=== PATIENT | female | born 1980 | race Caucasian/White ===

== ENCOUNTER 2018-08-25 13:49 | Outpatient (CLI) | payer OTHER, SELFPAY ==
--- NOTE | 2018-08-25 13:54 | PC.NURSE ---
[facility] [employer]
== END 2018-08-25 13:57 | disposition home or self-care (01) ==
LOC: UTC.OUT 13:50
PROVIDERS: PCP Family Medicine Geriatric Medicine; Visit Provider Nurse Practitioner
DX: Z00.00 Encounter for general adult medical examination without abnormal findings (principal)

== ENCOUNTER → 2020-04-15 21:31 | Outpatient (CLI) | payer OTHER, SELFPAY ==
[2020-04-17 15:55] LABS: Covid-19 Nasal PCR Sendout Lex POSITIVE
== END ==
PROVIDERS: PCP Emergency Medicine; Visit Provider Emergency Medicine
DX: Z20.828 Contact with and (suspected) exposure to other viral communicable diseases (principal); U07.1 COVID-19; R51 Headache; R05 Cough
CPT/HCPCS: U0004

== ENCOUNTER → 2020-04-16 02:18 | Outpatient (CLI) | payer OTHER, SELFPAY ==
[2020-04-16 03:29] LABS: Coronavirus 19 IgG Antibody Negative (Negative); Coronavirus 19 IgM Antibody Negative (Negative)
== END ==
PROVIDERS: PCP Emergency Medicine; Visit Provider Emergency Medicine
DX: Z20.828 Contact with and (suspected) exposure to other viral communicable diseases (principal)
CPT/HCPCS: 86328

== ENCOUNTER 2021-03-06 04:42 | Outpatient (CLI) | payer OTHER, SELFPAY ==
[2021-03-06 05:20] VITALS: BMI 36.0
== END 2021-03-06 05:23 | disposition home or self-care (01) ==
LOC: OUTP 04:45
PROVIDERS: PCP Emergency Medicine; Visit Provider Emergency Medicine
DX: J06.9 Acute upper respiratory infection, unspecified (principal)

== ENCOUNTER → 2023-01-26 12:04 | Outpatient (CLI) | payer OTHER, SELFPAY ==
[2023-01-26 10:23] LABS: Basophils # 0.1 K/mm3 (0-0.2); Basophils % 0.5 % (0.1-2.0); Eosinophils # 0.4 K/mm3 (0.0-0.4); Eosinophils % 3.5 % (0.1-12.0); Hematocrit 36.3 % (37.0-47.0); Hemoglobin 11.4 g/dL (12.2-16.2); Lymphocytes # 3.3 K/mm3 (0.7-4.5); Lymphocytes % 29.6 % (10-50); Mean Corpuscular HGB Conc 31.4 g/dL (31.8-35.4); Mean Corpuscular Hemoglobin 25.5 pg (27.0-31.2); Mean Corpuscular Volume 81.2 fl (81-99); Mean Platelet Volume 6.6 fl (7.4-10.4); Monocytes # 0.9 K/mm3 (0.1-1.0); Monocytes % 7.9 % (1.7-9.3); Neutrophils # 6.5 K/mm3 (1.8-7.8); Neutrophils % 58.5 % (37.0-80.0); Platelet Count 378 K/mm3 (142-424); Red Blood Count 4.47 M/mm3 (4.20-5.40); Red Cell Distribution Width 16.3 % (11.5-17.5); White Blood Count 11.2 K/mm3 (4.8-10.8)
[2023-01-26 10:45] LABS: Alanine Aminotransferase 27 U/L (12-78); Albumin Level 4.2 g/dl (3.5-5.0); Albumin/Globulin Ratio 1.4 (1.1-1.8); Alkaline Phosphatase 57 U/L (38-126); Anion Gap 16.8 mEq/L (5-15); Aspartate Amino Transferase 28 U/L (14-36); Bilirubin,Total 0.3 mg/dl (0.2-1.3); Blood Urea Nitrogen 13 mg/dl (7-17); Calcium 9.2 mg/dl (8.4-10.2); Carbon Dioxide 24 mmol/L (22.0-30.0); Chloride 102 mmol/L (98-107); Chol/HDL Ratio 4.9 (1-3.5); Cholesterol 274 mg/dl (140-200); Estimated Glomerular Filt Rate 109 ml/min (>60); GFR (African American) 132 ML/MIN (>60); Glucose 97 mg/dl (74-100); HDL Cholesterol 56 mg/dl (40-60); Potassium 4.8 mmoL/L (3.5-5.1); Sodium 138 mmol/L (136-145); Total Protein,Serum 7.2 g/dl (6.3-8.2); Triglycerides 309 mg/dl (30-150); VLDL Cholesterol 62 mg/dL (0-40)
[2023-01-26 10:55] LABS: Hemoglobin A1C 5.6 % (4.0-6.0)
[2023-01-26 11:15] LABS: Thyroid Stimulating Hormone 3.71 uIU/mL (0.465-4.68)
== END ==
PROVIDERS: PCP Nurse Practitioner Family; Visit Provider Nurse Practitioner Family
DX: I10 Essential (primary) hypertension (principal); Z00.00 Encounter for general adult medical examination without abnormal findings; Z13.1 Encounter for screening for diabetes mellitus; Z13.220 Encounter for screening for lipoid disorders; E66.9 Obesity, unspecified; Z68.41 Body mass index [BMI] 40.0-44.9, adult; Z79.899 Other long term (current) drug therapy
CPT/HCPCS: 36415; 80053; 80061; 83036; 84443; 85025

== ENCOUNTER → 2023-02-09 06:33 | Outpatient (CLI) | payer OTHER, SELFPAY ==
--- NOTE | 2023-02-09 07:32 | MM_ITS ---
PROCEDURE INFORMATION: Exam: Bilateral Screening 3D Mammography Exam date and time: 02/09/2023 7:26 AM Age: 42 years old Clinical indication: Screening mammogram TECHNIQUE: Imaging protocol: Bilateral Screening tomosynthesis and 2D mammography including computer-aided detection (CAD) when performed. COMPARISON: No relevant prior studies available. FINDINGS: MAMMOGRAPHY: Breast composition: There are scattered areas of fibroglandular density. Mass: 1.8 cm mass within the upper outer anterior right breast should be further assessed with ultrasound. 0.6 cm mass within the slightly lower inner right middle 1/3 about 7 cm from the nipple should be further assessed with ultrasound. Architectural distortion: No new or suspicious architectural distortion. Calcifications: No new or suspicious calcifications are present Asymmetric density: No new or suspicious asymmetric density is present Skin thickening: None. Axillary adenopathy: None. IMPRESSION: 1. 1.8 cm mass within the upper outer anterior right breast should be further assessed with ultrasound. 2. 0.6 cm mass within the slightly lower inner right middle 1/3 about 7 cm from the nipple should be further assessed with ultrasound. ASSESSMENT: BI-RADS category 0: Incomplete-need additional imaging evaluation and/or prior mammograms for comparison.
== END ==
PROVIDERS: PCP Nurse Practitioner Family; Visit Provider Nurse Practitioner Family
DX: Z12.31 Encounter for screening mammogram for malignant neoplasm of breast (principal)
CPT/HCPCS: 77063; 77067

== ENCOUNTER → 2023-02-12 13:48 | Outpatient (CLI) | payer OTHER, SELFPAY ==
--- NOTE | 2023-02-12 13:48 | US_ITS ---
PROCEDURE INFORMATION: Exam: US Right Breast, Complete Exam date and time: 02/12/2023 2:11 PM Age: 42 years old Clinical indication: Patient recalled for further evaluation of 2 right breast masses TECHNIQUE: Imaging protocol: Complete ultrasound of all four quadrants of the right breast and the retroareolar regions, including ultrasound of the axilla when performed. COMPARISON: MG MM DIG SCREENING MAMM BI W/CAD 02/09/2023 7:26 AM FINDINGS: Breast: Sonographic images of the right breast including the retroareolar region, all 4 quadrants and the axilla do not demonstrate any solid masses. 2.0 cm 10 o'clock axis cyst 3 cm from the nipple and 0.5 cm right 3 o'clock axis cyst correspond to the 2 masses on mammography. No architectural distortion or acoustical shadowing. No skin thickening or axillary adenopathy. IMPRESSION: Masses on screening mammography correspond to underlying cystic change sonographically. There is no mammographic evidence of malignancy.Annual bilateral mammographic screening is recommended unless otherwise clinically indicated. ASSESSMENT: BI-RADS Category 2: Benign
== END ==
PROVIDERS: PCP Nurse Practitioner Family; Visit Provider Nurse Practitioner Family
DX: N63.10 Unspecified lump in the right breast, unspecified quadrant (principal); R92.8 Other abnormal and inconclusive findings on diagnostic imaging of breast
CPT/HCPCS: 76641

== ENCOUNTER → 2023-05-06 15:46 | Outpatient (CLI) | payer OTHER, SELFPAY ==
[2023-05-06 12:01] LABS: Chol/HDL Ratio 5.2 (1-3.5); Cholesterol 240 mg/dl (140-200); HDL Cholesterol 46 mg/dl (40-60); Triglycerides 271 mg/dl (30-150); VLDL Cholesterol 54 mg/dL (0-40)
[2023-05-06 12:13] LABS: Direct LDL Cholesterol 125.65 mg/dL (100-129)
== END ==
PROVIDERS: PCP Nurse Practitioner Family; Visit Provider Nurse Practitioner Family
DX: E78.5 Hyperlipidemia, unspecified (principal); I10 Essential (primary) hypertension
CPT/HCPCS: 80061

== ENCOUNTER → 2023-08-05 13:29 | Outpatient (CLI) | payer OTHER, SELFPAY ==
[2023-08-05 13:48] LABS: Chol/HDL Ratio 4.2 (1-3.5); Cholesterol 192 mg/dl (140-200); HDL Cholesterol 46 mg/dl (40-60); Triglycerides 273 mg/dl (30-150); VLDL Cholesterol 55 mg/dL (0-40)
[2023-08-05 14:06] LABS: Direct LDL Cholesterol 105.49 mg/dL (100-129)
== END ==
PROVIDERS: PCP Nurse Practitioner Family; Visit Provider Nurse Practitioner Family
DX: E78.5 Hyperlipidemia, unspecified (principal)
CPT/HCPCS: 80061

== ENCOUNTER 2023-11-06 22:45 | Outpatient (CLI) | payer OTHER, SELFPAY ==
[2023-11-06 23:10] LABS: Cholesterol 160 mg/dl (140-200); Triglycerides 178 mg/dl (30-150); VLDL Cholesterol 36 mg/dL (0-40)
[2023-11-06 23:11] LABS: Chol/HDL Ratio 4.7 (1-3.5); HDL Cholesterol 34 mg/dl (40-60)
[2023-11-06 23:21] LABS: Direct LDL Cholesterol 76.64 mg/dL (100-129)
== END 2023-11-06 23:59 ==
LOC: LAB 22:47
PROVIDERS: PCP Nurse Practitioner Family; Visit Provider Nurse Practitioner Family
DX: E78.5 Hyperlipidemia, unspecified (principal)
CPT/HCPCS: 80061

== ENCOUNTER 2024-02-07 14:54 | Outpatient (CLI) | payer OTHER, SELFPAY ==
[2024-02-07 14:39] LABS: Basophils # 0.1 K/mm3 (0-0.2); Basophils % 0.5 % (0.1-2.0); Eosinophils # 0.2 K/mm3 (0.0-0.4); Eosinophils % 1.8 % (0.1-12.0); Hemoglobin 11.1 g/dL (12.2-16.2); Lymphocytes # 2.9 K/mm3 (0.7-4.5); Lymphocytes % 29.8 % (10-50); Mean Corpuscular HGB Conc 31.8 g/dL (31.8-35.4); Mean Corpuscular Hemoglobin 25.8 pg (27.0-31.2); Mean Platelet Volume 8.2 fl (7.4-10.4); Monocytes # 0.6 K/mm3 (0.1-1.0); Monocytes % 5.8 % (1.7-9.3); Neutrophils % 62.1 % (37.0-80.0); Platelet Count 407 K/mm3 (142-424); Red Blood Count 4.32 M/mm3 (4.20-5.40); Red Cell Distribution Width 16.4 % (11.5-17.5); White Blood Count 9.6 K/mm3 (4.8-10.8)
[2024-02-07 15:08] LABS: Alanine Aminotransferase 19 U/L (12-78); Albumin Level 4.3 g/dl (3.5-5.0); Albumin/Globulin Ratio 1.6 (1.1-1.8); Alkaline Phosphatase 72 U/L (38-126); Aspartate Amino Transferase 26 U/L (14-36); Bilirubin,Total 0.4 mg/dl (0.2-1.3); Blood Urea Nitrogen 13 mg/dl (7-17); Calcium 9.4 mg/dl (8.4-10.2); Carbon Dioxide 27 mmol/L (22.0-30.0); Chloride 99 mmol/L (98-107); Chol/HDL Ratio 3.8 (1-3.5); Cholesterol 136 mg/dl (140-200); Estimated Glomerular Filt Rate 109 ml/min (>60); GFR (African American) 131 ML/MIN (>60); Globulin 2.7 g/dL (1.3-3.2); Glucose 71 mg/dl (74-100); HDL Cholesterol 36 mg/dl (40-60); Sodium 137 mmol/L (136-145); Triglycerides 174 mg/dl (30-150); VLDL Cholesterol 35 mg/dL (0-40)
[2024-02-07 15:10] LABS: Hemoglobin A1C 5.5 % (4.0-6.0)
[2024-02-07 15:19] LABS: Free T4 (Free Thyroxine) 1.17 ng/dl (0.78-2.19)
[2024-02-07 15:22] LABS: Direct LDL Cholesterol 68.71 mg/dL (100-129)
[2024-02-07 15:29] LABS: 25-OH Vitamin D, Total 75.2 ng/mL (30-100)
[2024-02-07 16:00] LABS: Vitamin B12 488 pg/mL (239-931)
[2024-02-07 16:42] LABS: Iron 45 ug/dL (37-170)
[2024-02-07 16:53] LABS: Total Iron Binding Capacity 366 ug/dL (265-497)
[2024-02-07 17:20] LABS: Ferritin 7.39 ng/ml (6.24-137)
[2024-02-08 08:47] LABS: HIV (1&2) Antibody Rapid NON REACTIVE
[2024-02-09 08:56] LABS: HCV Ab Non Reactive (Non Reactive)
== END 2024-02-07 23:59 | disposition home or self-care (01) ==
LOC: LAB.DROPOF 14:54
PROVIDERS: PCP Nurse Practitioner Family; Visit Provider Nurse Practitioner Family
DX: Z11.59 Encounter for screening for other viral diseases (principal); Z13.1 Encounter for screening for diabetes mellitus; Z11.4 Encounter for screening for human immunodeficiency virus [HIV]; R53.83 Other fatigue; E66.9 Obesity, unspecified; Z68.36 Body mass index [BMI] 36.0-36.9, adult; E78.5 Hyperlipidemia, unspecified
CPT/HCPCS: 80050; 80053; 80061; 82306; 82607; 82728; 83036; 83540; 83550; 84439; 84443; 85025

== ENCOUNTER 2024-02-14 07:43 | Outpatient (CLI) | payer OTHER, SELFPAY ==
--- NOTE | 2024-02-14 07:53 | MM_ITS ---
PROCEDURE INFORMATION: Exam: MG Bilateral Screening 3D Mammography Exam date and time: 02/14/2024 7:52 AM Age: 43 years old Clinical indication: Screening examination TECHNIQUE: Imaging protocol: Bilateral Screening tomosynthesis and 2D mammography including computer-aided detection (CAD) when performed. COMPARISON: 1. MG MM DIG SCREENING MAMM BI W/CAD 02/09/2023 7:26 AM 2. US BREAST RT COMPLETE 02/12/2023 2:11 PM FINDINGS: MAMMOGRAPHY: Breast composition: There are scattered areas of fibroglandular density. Mass: no new or suspicious masses Architectural distortion: None. Calcifications: No suspicious calcifications. Asymmetric density: None. Skin thickening: None. Axillary adenopathy: None. IMPRESSION: No mammographic evidence of malignancy. Annual screening is recommended unless otherwise clinically indicated. ASSESSMENT: BI-RADS Category 1: Negative
== END 2024-02-14 23:59 | disposition home or self-care (01) ==
LOC: RAD 07:43
PROVIDERS: PCP Nurse Practitioner Family; Visit Provider Nurse Practitioner Family
DX: Z12.31 Encounter for screening mammogram for malignant neoplasm of breast (principal)
CPT/HCPCS: 77063; 77067

== ENCOUNTER 2024-03-01 07:59 | Outpatient (CLI) | payer OTHER, SELFPAY ==
[2024-03-01 08:33] VITALS: BP 114/74; PULSE 67; RESP 18; O2SAT 100
[2024-03-01] MEDS: IRON SUCROSE COMPLEX 200 MG in 0.9 % SODIUM CHLORIDE 100 ML 220 MG IV (08:33)
[2024-03-01] MEDS: SODIUM CHLORIDE 0.9% 50ML BAG 50 ML IV (08:33)
[2024-03-01 09:16] VITALS: BP 130/81; PULSE 81; RESP 18; O2SAT 100
== END 2024-03-01 09:16 | disposition home or self-care (01) ==
LOC: INF 07:59
PROVIDERS: PCP Nurse Practitioner Family; Visit Provider Nurse Practitioner Family
DX: R53.83 Other fatigue (principal)
CPT/HCPCS: 96365; J1756

== ENCOUNTER 2024-03-06 07:43 | Outpatient (CLI) | payer OTHER, SELFPAY ==
[2024-03-06] MEDS: SODIUM CHLORIDE 0.9% 50ML BAG 50 ML IV (08:23)
[2024-03-06] MEDS: IRON SUCROSE COMPLEX 200 MG in 0.9 % SODIUM CHLORIDE 100 ML 220 MG IV (08:23)
[2024-03-06 08:25] VITALS: BP 103/58; PULSE 77; RESP 18; O2SAT 97
[2024-03-06 09:10] VITALS: BP 125/79; PULSE 71; RESP 18; O2SAT 98
== END 2024-03-06 09:10 | disposition home or self-care (01) ==
LOC: INF 07:43
PROVIDERS: PCP Nurse Practitioner Family; Visit Provider Nurse Practitioner Family
DX: R53.83 Other fatigue (principal)
CPT/HCPCS: 96365; J1756

== ENCOUNTER 2024-03-15 08:19 | Outpatient (CLI) | payer OTHER, SELFPAY ==
[2024-03-15 08:30] VITALS: BP 114/61; PULSE 70; RESP 18; TEMP 36.8; O2SAT 99
[2024-03-15] MEDS: IRON SUCROSE COMPLEX 200 MG in 0.9 % SODIUM CHLORIDE 100 ML 220 MG IV (08:40)
[2024-03-15 09:25] VITALS: BP 113/67; PULSE 69; RESP 18; O2SAT 97
== END 2024-03-15 09:25 | disposition home or self-care (01) ==
LOC: INF 08:20
PROVIDERS: PCP Nurse Practitioner Family; Visit Provider Nurse Practitioner Family
DX: R53.83 Other fatigue (principal)
CPT/HCPCS: 96365; J1756

== ENCOUNTER 2024-03-23 07:28 | Outpatient (CLI) | payer OTHER, SELFPAY ==
[2024-03-23 08:20] VITALS: BP 110/74; PULSE 70; RESP 16; TEMP 36.6; O2SAT 98
[2024-03-23] MEDS: SODIUM CHLORIDE 0.9% 10ML FLUSH SYRINGE 10 ML IV (08:20)
[2024-03-23] MEDS: IRON SUCROSE COMPLEX 200 MG in 0.9 % SODIUM CHLORIDE 100 ML 220 MG IV (08:20)
[2024-03-23] MEDS: SODIUM CHLORIDE 0.9% 50ML BAG 50 ML IV (08:20)
[2024-03-23 09:00] VITALS: BP 155/80; PULSE 75; RESP 16; TEMP 36.6; O2SAT 98
== END 2024-03-23 09:05 | disposition home or self-care (01) ==
LOC: INF 07:28
PROVIDERS: PCP Nurse Practitioner Family; Visit Provider Nurse Practitioner Family
DX: D50.9 Iron deficiency anemia, unspecified (principal)
CPT/HCPCS: 96365; J1756

== ENCOUNTER 2024-04-03 07:31 | Outpatient (CLI) | payer OTHER, SELFPAY ==
[2024-04-03] MEDS: SODIUM CHLORIDE 0.9% 50ML BAG 50 ML IV (08:35)
[2024-04-03] MEDS: IRON SUCROSE COMPLEX 200 MG in 0.9 % SODIUM CHLORIDE 100 ML 220 MG IV (08:35)
[2024-04-03 08:40] VITALS: BP 137/83; PULSE 68; RESP 18; O2SAT 98
[2024-04-03 09:20] VITALS: BP 136/82; PULSE 65; RESP 18; O2SAT 98
== END 2024-04-03 09:20 | disposition home or self-care (01) ==
LOC: INF 07:31
PROVIDERS: PCP Nurse Practitioner Family; Visit Provider Nurse Practitioner Family
DX: R53.83 Other fatigue (principal)
CPT/HCPCS: 96365; J1756

== ENCOUNTER 2024-12-13 16:36 | Outpatient (CLI) | payer BC, SELFPAY ==
[2024-12-13 11:06] LABS: Microscopic, Urine URINE MICROSCOPIC (MICROSCOPIC)
[2024-12-13 11:33] LABS: Basophils % 0.4 % (0.1-2.0); Eosinophils # 0.2 Kmm3 (0.0-0.4); Eosinophils % 2.3 % (0.1-12.0); Hematocrit 36.8 % (37.0-47.0); Hemoglobin 12.3 g/dL (12.2-16.2); Lymphocytes # 2.7 K/mm3 (0.7-4.5); Lymphocytes % 28.1 % (10-50); Mean Corpuscular HGB Conc 33.4 g/dL (31.8-35.4); Mean Corpuscular Hemoglobin 29.1 pg (27.0-31.2); Mean Corpuscular Volume 87.2 fl (81-99); Mean Platelet Volume 9.7 fl (7.4-10.4); Monocytes # 0.9 K/mm3 (0.1-1.0); Monocytes % 9.5 % (1.7-9.3); Neutrophils # 5.8 K/mm3 (1.8-7.8); Neutrophils % 59.4 % (37.0-80.0); Nucleated Red Blood Cells # 0 10^3/uL; Nucleated Red Blood Cells % 0 %; Platelet Count 377 K/mm3 (142-424); Red Blood Count 4.22 M/mm3 (4.20-5.40); Red Cell Distribution Width 13.7 % (11.5-17.5); Red Cell Distribution Width-SD 43.7 fL; White Blood Count 9.7 K/mm3 (4.8-10.8)
[2024-12-13 11:34] LABS: Appearance,Urine CLEAR (Clear); Bilirubin,Urine Negative (Negative); Blood, Urine 1+ (Negative); Color,Urine YELLOW (Yellow); Glucose,Urine (UA) Negative (Negative); Ketones,Urine Negative (Negative); Leukocyte Esterase,Urine Negative (Negative); Nitrate,Urine Negative (Negative); PH,Urine 5.5 (5.0-8.5); Protein,Urine Negative (Negative); Specific Gravity, Urine >= 1.030 (1.005-1.030); Urobilinogen,Urine 0.2 EU/dl (0.2)
[2024-12-13 11:42] LABS: Bacteria,Urine Trace /lpf; WBC,Urine Occasional #/hpf (0-3)
[2024-12-13 11:43] LABS: Activated Partial Thrombo Time 28.3 seconds (22.8-30.6); INR 0.93 (0.9-1.1); Prothrombin Time 10.5 seconds (10.1-12.5)
[2024-12-13 11:46] LABS: D-Dimer 0.58 ug/mL (0.0-0.5)
[2024-12-13 12:02] LABS: Alanine Aminotransferase 23 U/L (12-78); Albumin/Globulin Ratio 1.2 (1.1-1.8); Alkaline Phosphatase 60 U/L (38-126); Anion Gap 10.2 mEq/L (5-15); Aspartate Amino Transferase 29 U/L (14-36); Bilirubin,Total 0.4 mg/dl (0.2-1.3); Blood Urea Nitrogen 14 mg/dl (7-17); Calcium 9.5 mg/dl (8.4-10.2); Carbon Dioxide 24 mmol/L (22.0-30.0); Chloride 106 mmol/L (98-107); Chol/HDL Ratio 6.4 (1-3.5); Cholesterol 296 mg/dl (140-200); Estimated Glomerular Filt Rate 90 ml/min (>60); GFR (African American) 109 ML/MIN (>60); Globulin 3.4 g/dL (1.3-3.2); Glucose 103 mg/dl (74-100); HDL Cholesterol 46 mg/dl (40-60); Hemoglobin A1C 5.6 % (4.0-6.0); Potassium 4.2 mmoL/L (3.5-5.1); Sodium 136 mmol/L (136-145); Total Protein,Serum 7.4 g/dl (6.3-8.2); Triglycerides 261 mg/dl (30-150); VLDL Cholesterol 52 mg/dL (0-40)
[2024-12-13 12:11] LABS: Iron 68 ug/dL (37-170)
[2024-12-13 12:12] LABS: Direct LDL Cholesterol 175.09 mg/dL (100-129)
[2024-12-13 12:19] LABS: 25-OH Vitamin D, Total 38.1 ng/mL (30-100)
[2024-12-13 12:21] LABS: Total Iron Binding Capacity 357 ug/dL (265-497)
[2024-12-13 12:32] LABS: Thyroid Stimulating Hormone 2.41 uIU/mL (0.465-4.68)
[2024-12-13 12:42] LABS: Erythrocyte Sedimentation Rate 15 mm/hr (0-20)
[2024-12-13 12:48] LABS: Ferritin 30.2 ng/ml (6.24-137)
[2024-12-13 12:52] LABS: Vitamin B12 453 pg/mL (239-931)
[2024-12-18 00:16] LABS: Lyme B. burgdorferi PCR Blood Negative (Negative)
== END 2024-12-13 23:59 | disposition home or self-care (01) ==
LOC: LAB.DROPOF 16:36
PROVIDERS: PCP Nurse Practitioner Family; Visit Provider Nurse Practitioner Family
DX: Z13.1 Encounter for screening for diabetes mellitus (principal); Z12.4 Encounter for screening for malignant neoplasm of cervix; G47.33 Obstructive sleep apnea (adult) (pediatric); R53.83 Other fatigue; N63.20 Unspecified lump in the left breast, unspecified quadrant; E78.5 Hyperlipidemia, unspecified; F41.9 Anxiety disorder, unspecified; F32.A Depression, unspecified; E66.9 Obesity, unspecified; R22.2 Localized swelling, mass and lump, trunk; E28.2 Polycystic ovarian syndrome; I10 Essential (primary) hypertension; R23.3 Spontaneous ecchymoses; E11.9 Type 2 diabetes mellitus without complications; R41.3 Other amnesia; D50.9 Iron deficiency anemia, unspecified; Z87.891 Personal history of nicotine dependence; Z79.84 Long term (current) use of oral hypoglycemic drugs; Z79.85 Long-term (current) use of injectable non-insulin antidiabetic drugs; Z68.38 Body mass index [BMI] 38.0-38.9, adult
CPT/HCPCS: 80053; 80061; 81001; 82306; 82607; 82728; 83036; 83540; 83550; 84439; 84443; 85025; 85378; 85610; 85651; 85730; 86140; 87086; 87476

== ENCOUNTER 2024-12-21 07:16 | Outpatient (CLI) | payer BC, SELFPAY ==
--- NOTE | 2024-12-21 07:30 | MM_ITS ---
PROCEDURE INFORMATION: Exam: US Left Breast, Complete MG Left Diagnostic Breast Tomosynthesis Exam date and time: 12/21/2024 7:35 AM Age: 44 years old Clinical indication: Concern for left chest wall lump and screening. TECHNIQUE: Imaging protocol: Complete ultrasound of all four quadrants of the left breast and the retroareolar regions, including ultrasound of the axilla when performed. Left Diagnostic tomosynthesis and 2D mammography including computer-aided detection (CAD) when performed. Unilateral or bilateral exam. COMPARISON: 1. MG MM DIG SCREENING MAMM BI W/CAD 02/14/2024 7:52 AM 2. MG MM DIG SCREENING MAMM BI W/CAD 02/09/2023 7:26 AM FINDINGS: MAMMOGRAPHY: Breast mammogram findings: Breast composition: There are scattered areas of fibroglandular density. Mass: No suspicious mass. Architectural distortion: None. Calcifications: No suspicious calcifications. Asymmetric density: None. Skin thickening: None. Axillary adenopathy: None. Other: No skin palpable marker is placed and no findings visualized on the left, including in the XCCL. ULTRASOUND: Breast ultrasound findings: Left sonography, all 4 quadrants, retroareolar and axilla. No sonographic findings demonstrated; however, technologist makes a note that the palpable areas under the clavicle, no images annotated as palpable are provided. IMPRESSION: See comments Palpable concern indicated as near the chest wall and are related to the clavicle is not annotated on the mammogram nor on ultrasound, though no mammographic or sonographic findings are demonstrated. Consider adding computed tomography or MRI as clinically indicated. Further evaluation of a palpable abnormality should be based on clinical grounds regardless of radiographic findings or lack thereof. No mammographic evidence of malignancy. Annual screening mammogram recommended unless otherwise clinically indicated. ASSESSMENT: BI-RADS Category 1: Negative.
--- NOTE | 2024-12-21 08:00 | US_ITS ---
FINAL REPORT CLINICAL HISTORY: left chest wall mass, abnormal bruising- no trauma COMPARISON: None FINDINGS: Limited sonographic images were obtained of the soft tissues of the left chest wall at the area of abnormality. Inferior to the left clavicle is a focus measuring up to 1.3 cm. This does not demonstrate vascularity. This may represent a small hematoma. No corresponding abnormality identified on CT obtained the same day. IMPRESSION: Focus inferior to the left clavicle with no corresponding abnormality on CT at the area of interest. Reviewed, Interpreted and Dictated by Dixon Perez MD Transcribed by Ashlyn Durán Authenticated and [facility]
[2024-12-21] MEDS: IOPAMIDOL-370 (76%);100ML BOTTLE 75 ML IV (08:35)
--- NOTE | 2024-12-21 11:00 | CT_ITS ---
FINAL REPORT TECHNIQUE: The patient was injected with IV contrast. Axial images were obtained of the chest by computed tomography. Precontrast images were also obtained. This study was performed with techniques to keep radiation doses as low as reasonably achievable (ALARA). Individualized dose reduction techniques using automated exposure control or adjustment of mA and/or kV according to the patient's size were employed. CLINICAL HISTORY: atraumatic left chest wall mass (bb placed in area of interest) COMPARISON: None FINDINGS: CT OF THE CHEST WITH AND WITHOUT CONTRAST: On the preinfusion images, mild coronary artery calcifications are noted. On the postinfusion images, there is no mediastinal mass or adenopathy identified. At the area corresponding to a skin marker over the superior left chest wall is a 7 mm subcutaneous density, well-seen on image 9 of series 2. This is nonspecific with slightly irregular margins. This does not appear to communicate with the deep structures. Heart size is normal. There is no pericardial or pleural effusion identified. There is a 4 mm nodule in the posterior right lower lobe, well-seen on image 47 of series 4. Per Fleischner criteria, 1 year follow-up recommended. Limited images of the upper abdomen demonstrate a low-attenuation focus in the medial right lobe of the liver measuring 9 mm. IMPRESSION: 7 mm subcutaneous nodule may represent a small lymph node at the area of interest. Reviewed, Interpreted and Dictated by Dixon Perez MD Transcribed by Ashlyn Durán Authenticated and [facility]
== END 2024-12-21 23:59 | disposition home or self-care (01) ==
LOC: RAD 07:17
PROVIDERS: PCP Nurse Practitioner Family; Visit Provider Nurse Practitioner Family
DX: R22.2 Localized swelling, mass and lump, trunk (principal); R23.3 Spontaneous ecchymoses; N63.10 Unspecified lump in the right breast, unspecified quadrant
CPT/HCPCS: 71270; 76604; 76641; 77062; 77066; G0279; Q9967